=== PATIENT | female | born 1990 | race African-American/Black ===

== ENCOUNTER 2023-09-16 08:59 | Outpatient (OUT) | payer BC, SELFPAY ==
--- NOTE | 2023-09-16 09:01 | US_ITS ---
The [address] [address] Patient Name: RIOS DOMINGUEZ MRN: [id number] date: 1990 Sex: F Assigned Patient Location: [facility] Current Patient Location: [facility] Accession/Order Number: [id number] Exam Date: 09/16/2023 09:01 Report Date: 09/16/2023 10:14 At the request of: BETZAIDA DIMAS Procedure: US pelvis w/ transvaginal EXAMINATION: US pelvis w/ transvaginal HISTORY: PELVIC PAIN UTERINE LEIOMYOMA COMPARISON: No relevant comparison available. FINDINGS: Transabdominal and transvaginal images The uterus is enlarged in size, lobular in contour and heterogeneous in echotexture. The uterus measures 10.7 x 7.5 x 9.8 cm. The uterus is anteverted. Multiple heterogeneous masses the largest measuring 7.9 x 6.0 x 6.1 cm. Endometrium measures 1.9 cm, prominent. The right ovary is normal measuring 3.7 x 2.0 x 2.3 cm. Normal color and Doppler flow. Left ovary was only seen on transabdominal imaging measuring 4.3 x 2.2 x 4.0 cm. No free fluid US/US pelvis w/ transvaginal IMPRESSION: Enlarged heterogeneous uterus with multiple masses measuring up to 7.9 cm. Uterine fibroids are favored Electronically authenticated by: DEBBIE QUINONES Date: 09/16/2023 10:14
== END 2023-09-16 09:00 | disposition home or self-care (01) ==
LOC: NOMS 08:59
PROVIDERS: PCP Family Medicine; Visit Provider Obstetrics & Gynecology
DX: R10.2 Pelvic and perineal pain (principal); D25.9 Leiomyoma of uterus, unspecified
CPT/HCPCS: 76830; 76856

== ENCOUNTER 2023-09-24 20:24 | Outpatient (REF) | payer BC, SELFPAY ==
[2023-09-29 15:08] LABS: Age Gdln ACOG Testing Note (.); HPV Aptima Negative (Negative); IGP, Aptima HPV, rfx 16/18,45 Note (.)
== END 2023-09-24 20:25 | disposition home or self-care (01) ==
LOC: LAB 20:24
PROVIDERS: PCP Family Medicine; Visit Provider Physician Assistant
DX: Z01.419 Encounter for gynecological examination (general) (routine) without abnormal findings (principal)
CPT/HCPCS: 87624; G0145

== ENCOUNTER 2023-10-26 12:12 | Outpatient (OUT) | payer BC, SELFPAY | END 2023-10-26 12:13 | disposition home or self-care (01) | LOC: PST 12:13 | PROVIDERS: PCP Family Medicine; Visit Provider Obstetrics & Gynecology | DX: Z01.818 Encounter for other preprocedural examination (principal); R10.2 Pelvic and perineal pain; D25.9 Leiomyoma of uterus, unspecified ==

== ENCOUNTER 2023-11-06 06:27 | Day surgery (SDC) | payer BC, SELFPAY ==
[2023-10-26 12:51] VITALS: BP 112/72; PULSE 76; TEMP 36.3; O2SAT 99; BMI 32.8
[2023-11-06] VITALS (10 sets, daily range): BP systolic 99–114; BP diastolic 53–82; PULSE 57–82; TEMP 36.3; O2SAT 96–99; BMI 33.5
--- OUTSIDE RECORDS SUMMARY | 2023-11-06 06:29 | XMS_ITS | CCD ---
Author Organization [facility] Care Team Providers Care Violin Mechanic Name Role Phone Justine Montanez MD Primary Care Provider [phone] Sabrina Estrada Unavailable [phone] VANNESA TEJEDA Attending Unavailable SABRINA ESTRADA Referring Unavailable JUSTINE MONTANEZ Primary Care Unavailable JUSTINE MONTANEZ Primary Care Unavailable VANNESA TEJEDA Referring Unavailable LAURA ANTONIO Attending Unavailable JUSTINE MONTANEZ Primary Care Unavailable VANNESA TEJEDA Referring Unavailable Arlyn Phillips NP Unavailable [phone] Justine Montanez MD Primary Care Provider BETZAIDA CARVALHO Attending Unavailable KEANU LOPEZ Attending Unavailable BETZAIDA CARVALHO Attending Unavailable Medications Current Medications Medication Drug Class(es) Dates Sig (Normalized) Sig (Original) cyclobenzaprine hydrochloride 10 mg oral tablet (1 source) Muscle Relaxant Start: 01-16-2023 take 1 tablet by mouth in the morning, then take 1 tablet by mouth in the evening, then take 1 tablet by mouth at bedtime cyclobenzaprine (Flexeril) 10 MG tablet Indications: Acute right-sided low back pain with right-sided sciatica Take 1 tablet (10 mg) by mouth in the morning and 1 tablet (10 mg) in the evening and 1 tablet (10 mg) before bedtime. Do all this for 10 days. 30 tablet 0 01/16/2023 Active ferrous sulfate 325 mg delayed release oral tablet (1 source) Start: 01-31-2023 ferrous sulfate 325 (65 Fe) MG EC tablet Indications: Iron deficiency anemia due to sideropenic dysphagia TAKE 1 TABLET BY MOUTH IN THE MORNING AND 1 TAB AT NOON AND 1 TAB IN THE EVENING TAKE WITH MEALS 270 tablet 4 01/31/2023 Active ibuprofen 200 mg oral tablet (1 source) Nonsteroidal Anti-inflammatory Drug ibuprofen 200 MG tablet Take by mouth. 0 Active Problems Active Problems Problem Classification Problem Date Documented Date Episodic/Chronic Adjustment disorders (1 source) Adjustment disorder with anxious mood; Translations: [Adjustment disorder with anxiety] Onset: 01-16-2023 01-16-2023 Chronic Allergic reactions (1 source) Atopic dermatitis; Translations: [Atopic dermatitis, unspecified] Onset: 01-16-2023 01-16-2023 Chronic Gastritis and duodenitis (1 source) Chronic gastritis; Translations: [Unspecified chronic gastritis without bleeding] Onset: 01-16-2023 01-16-2023 Chronic Menstrual disorders (1 source) Menometrorrhagia; Translations: [Excessive and frequent menstruation with irregular cycle] Onset: 01-16-2023 01-16-2023 Chronic Miscellaneous mental health disorders (1 source) Primary insomnia; Translations: [Primary insomnia] Onset: 01-16-2023 01-16-2023 Chronic Other and unspecified benign neoplasm (1 source) Benign neoplasm of connective and other soft tissue, unspecified; Translations: [Fibroid] Onset: 05-21-2022 Episodic Other congenital anomalies (1 source) Accessory right tarsal navicular bone; Translations: [Other congenital malformations of lower limb(s), including pelvic girdle] Onset: 01-16-2023 01-16-2023 Chronic Other congenital anomalies (1 source) 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; Translations: [Other congenital malformations of lower limb(s), including pelvic girdle] Onset: 01-16-2023 01-16-2023 Chronic Other female genital disorders (1 source) Dyspareunia due to non-psychogenic cause in the female; Translations: [Unspecified dyspareunia] Onset: 01-16-2023 01-16-2023 Chronic Other nervous system disorders (1 source) Difficulty walking; Translations: [Difficulty in walking, not elsewhere classified] Onset: 01-16-2023 01-16-2023 Chronic Other nervous system disorders (1 source) Chronic pain; Translations: [Other chronic pain] Onset: 01-16-2023 01-16-2023 Chronic Spondylosis; intervertebral disc disorders; other back problems (4 sources) Acute back pain with sciatica; Translations: [Lumbago with sciatica, right side] Onset: 01-16-2023 07-09-2023 Episodic Thyroid disorders (4 sources) Multinodular goiter; Translations: [Nontoxic multinodular goiter] Onset: 05-21-2022 Chronic Past or Other Problems Problem Classification Problem Date Documented Da te Episodic/Chronic Deficiency and other anemia (1 source) Anemia; Translations: [Anemia, unspecified] Onset: 01-16-2023 01-16-2023 Episodic Deficiency and other anemia (1 source) Aura-Yusuf syndrome; 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] Onset: 01-16-2023 01-16-2023 Episodic Other non-traumatic joint disorders (1 source) Joint pain; Translations: [Pain in unspecified joint] Onset: 01-16-2023 01-16-2023 Episodic Viral infection (1 source) Verruca plantaris; Translations: [Plantar wart] Onset: 01-16-2023 01-16-2023 Episodic Results Test Name Value Interpretation Reference Range Facility [facility] 06-12-2022 CNOV Office Visit (MADELEINE ) RIOS DOMINGUEZ ([id number]) 1990 F Date Time Provider Department 06/12/22 11:00 AM LAURA ANTONIO During your visit today, we recorded the following information about you: Pulse Blood pressure Weight Height 80/minute 116/65 98.9 kg 1.643 m Pippa Whitehead Ma 06/12/2022 10:44 AM Signed Thank you for choosing the [facility] Department of Endocrinology, Diabetes and Metabolism. Did you know that you need to call 48 hours in advance of your scheduled visit, if you are unable to make your appointment? The Endocrinology and Metabolism [place] thanks you for your commitment, because patients not showing to their appointment results in a lost opportunity for patients to receive [facility] health care at the [facility]. To Cancel an appointment, please choose one of the following: - Call the Appointment Call Center at [phone] - From [email or web address], Go to Appointments - Cancel Appts If cancelling, consider your need to reschedule to prevent further delays in your care. To Schedule an appointment, please choose one of the following: - Call the Appointment Call Center at [phone] - From [email or web address], Go to Appointments - Request an Appt Laura Antonio MD 06/12/2022 11:29 AM Signed Laura Antonio M.D. Department of Endocrine Surgery Endocrinology Metabolism [place] [address], [place] [address] ENDOCRINE SURGERY NEW PATIENT VISIT NAME: Rios Dominguez CLINIC NO: [id number] : 1990 History of Present Illness: Rios Dominguez is a 32 year old female referred by Dr. Vannesa Tejeda for evaluation thyromegaly. Patient reports history of thyroiditis, diagnosed by a nurse patient works with in 05/2022. She reported minimal discomfort with swallowing and pressure sensation in neck. No imaging done. TSH from 05/21/22 was normal. She had an ultrasound in 2016 that showed a 0.4 cm right thyroid cyst. Denies compressive symptoms or aesthetic concerns. Denies hot flashes, weight loss, palpitations, and changes in vision. Denies excessive fatigue, fever, weight gain. Denies past medical history. Takes no medication. Lost 40# last year with intentional effort but has stalled over the holidays. Is eager to restart her weight loss efforts soon. My findings and recommendations will be communicated by way of the shared medical record. ENDOCRINE SURGICAL HISTORY: New or established diagnosis: Multinodular goiter Prior history of radiation treatment to the neck: No Known thyroid disease: No Known parathyroid disease: No Prior neck operations: No Family history of hypercalcemia: No Family history of thyroid cancer: No Family history of other endocrine tumors: No Pertinent medications (levothyroxine, blood thinners, calcium, diuretics, lithium, Sensipar, biotin): No PMH: PAST MEDICAL HISTORY Diagnosis Date Accessory navicular bone of both feet Fibroid Sciatica Thyroid nodule PSH: PAST SURGICAL HISTORY Procedure Laterality Date EXTRACTION ERUPTED TOOTH/EXR CURRENT MEDICATIONS: No current outpatient medications on file prior to visit. No current facility-administered medications on file prior to visit. All: ALLERGIES No Known Allergies SH: Social History Tobacco Use Smoking status: Never Passive exposure: Never Smokeless tobacco: Never Substance Use Topics Alcohol use: Yes Comment: occasionally Drug use: Never FH: Pertinent history above; otherwise, non-contributory REVIEW OF SYSTEMS: CONSTITUTIONAL: Well-appearing, no malaise or fevers EYES: normal HEENT: Negative for occular, acoustic, nasal, or oral complaints RESPIRATORY: Negative for cough, hemoptysis, wheezing, or resting dyspnea CARDIOVASCULAR: Negative for resting chest pain GI: No nausea, vomiting, or diarrhea : normal MUSCULOSKELETAL: Negative for joint swelling or acute pain SKIN: no rashes, erythema, or skin cancers PSYCH: Negative for significant mood disorder or psychiatric illness NEURO: No history of recent syncope, paralysis, or seizures ENDOCRINE: See HPI PHYSICAL EXAM: BP 116/65 Pulse 80 Ht 164.3 cm (5' 4.69 ) Wt 98.9 kg (218 lb) LMP 05/19/2022 BMI 36.63 kg/m? There is no height or weight on file to calculate BMI. CONSTITUTIONAL: Well appearing, alert, and oriented and appears euthyroid. NECK: skin over the anterior neck is smooth, no mass is visualized. Palpation revealed neck to be supple, thyroid gland is palpable and overall normal in size. No lymphadenopathy was palpated on either side of the neck. ULTRASOUND EXAMINATION: Ultrasound examination was performed in the office. Thyroid mildly heterogeneous without discrete nodules. Right lobe:3.25 x 1.84 x 3.93 cm Left lobe: 3.14 x 1.46 x 3.43 cm No worrisome lymphadenopathy was appreciated in either centra (more content not included)... Normal [facility] Kristen 05-30-2022 NADYA Telephone (MADELEINE) RIOS DOMINGUEZ ([id number]) 1990 F Date Time Provider Department 05/30/22 LAURA ANTONIO During your visit today, we recorded the following information about you: Anatena Barrientos 06/03/2022 9:29 AM Addendum 06/03/22: INTAKE COMPLETE ENDOCRINE SURGERY PATIENT WORKSHEET Initial Call Date: May 30, 2022 Reason for Consult/ Referral: Multinodular goiter [E04.2] PATIENT DEMOGRAPHICS Name: Rios Dominguez CCF#: [id number] : 1990 AGE: [age] year old Contact Numbers: Home: (home) Work: There is no work phone number on file. PATIENT PHYSICIAN INFORMATION Referring Doctor: Vannesa Tejeda Address: Phone: Waiter/Waitress First Class: same Address: Phone: PCP: Justine Montanez ([facility]) [address] [place] [address] PAST TREATMENT Office notes: SEE EPIC Medications: NONE THAT APPLY Pre-Visit Testing Component Latest Ref Rng AND Units 05/21/2022 TSH 0.270 - 4.200 mIU/L 1.200 Free T4 0.9 - 1.7 ng/dL 1.0 T3 79 - 165 ng/dL 97 Imaging Reports: Care Everywhere CD of Images: not requested, over 2 years old FNA: no FNA Slides: N/A Has the patient ever had thyroid or parathyroid surgery before: No Operative Reports: NONE AVAILABLE Pathology Reports: NONE AVAILABLE Allergies As of Date: 05/30/2022 (No Known Allergies) Date Reviewed: 05/21/2022 Reviewed by: Simon Barragan MA - Fully Assessed Reason for Visit: Consult [173] Cmt: Face Sheet Problem List As Of Date: 05/30/2022 (None) Encounter Status:Closed by ANA BARRIENTOS on 05/30/22 [facility] Kristen 05-27-2022 CNPN Telephone (ENDOMN) ANGELICARIOS ([id number]) 1990 F Date Time Provider Department 12/20/22 VANNESA TEJEDA During your visit today, we recorded the following information about you: Cara Alves Jewish History Professor 05/27/2022 10:51 AM Signed Mailed letter to Dr. [address] [facility] [address], [place], [place], [phone] Allergies As of Date: 05/27/2022 (No Known Allergies) Date Reviewed: 05/21/2022 Reviewed by: Simon Barragan MA - Fully Assessed Reason for Visit: Letter [264] Problem List As Of Date: 05/27/2022 (None) Encounter Status:Closed by CARA KWAN on 05/27/22 [facility] CNPNon 05-22-2022 CNPN Telephone (ENDOMN) RIOS DOMINGUEZ ([id number]) 1990 F Date Time Provider Department 05/22/22 VANNESA TEJEDA During your visit today, we recorded the following information about you: Cara Alves Jewish History Professor 05/22/2022 9:11 AM Signed Patient called in asking for her after visit summary to be faxed over to her. Successfully transmitted to [phone] Allergies As of Date: 05/22/2022 (No Known Allergies) Date Reviewed: 05/21/2022 Reviewed by: Simon Barragan MA - Fully Assessed Reason for Visit: Forms [913] Problem List As Of Date: 05/22/2022 (None) Encounter Status:Closed by CARA KWAN on 05/22/22 [facility] CNOVon 05-21-2022 CNOV Office Visit (ENCAMN ) RIOS DOMINGUEZ ([id number]) 1990 F Date Time Provider Department 05/21/22 1:00 PM VANNESA TEJEDA During your visit today, we recorded the following information about you: Pulse Blood pressure Weight Height 78/minute 123/71 98.4 kg 1.626 m Last Period 05/19/22 Vannesa Tejeda MD 05/21/2022 12:35 PM Addendum Viviane Lewis MD Call [phone] Vannesa Tejeda MD 05/21/2022 1:48 PM Signed Endocrine consult note Ms. Dominguez is a 32 year old female here today at the request of SABRINA ESTRADA [address] [facility] [phone] for evaluation, management, and treatment of the following issues: evaluation for thyroid nodules My final recommendations will be communicated back to the requesting physician by way of shared medical record or letter. Reason for visit: Nodules/mass History of thyroid nodules since 2016 Patient never had FNA Noted to have enlarged gland a few months ago and was seen by RN at work who patient reports diagnosed her with thyroiditis patient reports Min discomfort with eating, drinking, swallowing or other mass effect sxs but patient here to determine next step. There is some local pressure in thyroid bed. No family or personal history of thyroid cancer no radiation exposure no thyroid disease in family No autoimmune disease in family Thyroid Pain: no Mass Effect: local pressure Energy: stable and OK Moods: good Otherwise, the following additional concerns: has fibroids and interested in removal. Periods are occurring monthly but are irregular. Patient interested in childbearing in future. PAST MEDICAL HISTORY Diagnosis Date Accessory navicular bone of both feet Fibroid Sciatica Thyroid nodule PAST SURGICAL HISTORY Procedure Laterality Date EXTRACTION ERUPTED TOOTH/EXR No current outpatient medications on file prior to visit. No current facility-administered medications on file prior to visit. ALLERGIES No Known Allergies Social History Tobacco Use Smoking status: Never Passive exposure: Never Smokeless tobacco: Never Substance Use Topics Alcohol use: Yes Comment: occasionally Drug use: Never History reviewed. No pertinent family history. Negative for thyroid disease REVIEW OF SYSTEMS: Answers submitted by the patient for this visit: Endocrine Review of Systems (Submitted on 05/21/2022) Fatigue: Yes Night Sweats: Yes Recent Unintentional Weight Change: No Skin Color Changes: No Post-Nasal Drip: No Thyroid Pain (lower neck): Yes Trouble Swallowing: No Vision Disturbance: No Chest Pain: No Leg Swelling: No Blood Clots?: No Leg Pain while walking?: Yes Difficulty Breathing?: No Heartburn: No Nausea: No Vomiting?: No Diarrhea: No Constipation: No Abdominal Pain: No Bone Pain?: No Muscle Aches: No Muscle Weakness: No Joint Pain or Stiffness: No Headaches: No Dizziness: No Numbness?: No Urgency to Urinate?: No Increased Urination?: No Slow or Small Urine Stream?: No Are your menstrual cycles regular?: No Are your menstrual cycles irregular?: Yes Have your menstrual cycles stopped?: No Flushing?: No Hot Flashes?: No Increased Thirst: No Change in Body Hair?: No Cold Intolerance: Yes Heat Intolerance?: No PHYSICAL EXAM: BP 123/71 Pulse 78 Ht 162.6 cm (5' 4 ) Wt 98.4 kg (217 lb) LMP 05/19/2022 BMI 37.25 kg/m? Body mass index is 37.25 kg/m?. BP w/Orthostatic Vitals Date and Time Orthostatic BP Orthostatic Pulse BP Pulse BP Position BP Site BP Cuff Size 05/21/22 1225 -- -- 123/71 78 -- -- -- Appearance: well appearing, alert, and in no acute distress Skin: skin color, texture, turgor normal, no rashes or lesions Head: normal Eyes: Anicteric sclera. Pupils are equally round and reactive to light. Extraocular movements are intact. No lid lag, stare, ptosis. Oropharynx: lips, mucosa, and tongue normal, teeth and gums normal, oropharynx normal Neck: Supple, no adenopathy; thyroid markedly enlarged to size of 75 grams, no dominant nodules Heart: RRR without murmur, gallop, or rubs. Lungs: lungs clear to auscultation no wheezing or rhonchi Abdomen: soft, non-tender, positive bowel sounds Extremities: Normal, No deformities, No skin discoloration, and No edema Neuro: no resting tremor, reflexes 2+ DATA REVIEW: COMPARISON: None. FINDINGS: The right thyroid lobe measures 2.2 x 5.4 x 1.5 cm and the left thyroid lobe measures 2.3 x 5.1 x 1.7 cm. The thyroid isthmus measures 0.3 cm. There is a small benign colloid cyst in the right thyroid lobe measuring 0.4 cm. Normal vascularity of the thyroid gland. IMPRESSION: Small benign colloid cyst in the right thyroid lobe measuring 0.4 cm. Otherwise normal thyroid ultrasound. DICTATION START: 10/23/2015 10:55 Impression/plan: 32 year old female with history of longsta (more content not included)... Normal [facility] Comprehensive metabolic 2000 panelon 05-21-2022 Albumin [Mass/Vol] 3.8 g/dL Low 3.9-4.9 [facility] Comment on above: Order Comment: Speci men Type: BLOOD SPECIMEN Ordering Facility: [facility] Address: [address] [place] [address] Performed By: #### 3 016-3, 3024-7, 3053-6, 80097-3 #### [facility] CLIA [id number] [address] [place] [address] [place] ALP [Catalytic activity/Vol] 86 U/L Normal 34-123 [facility] Comment on above: Order Comment: Speci men Type: BLOOD SPECIMEN Ordering Facility: [facility] Address: [address] [place] [address] Performed By: #### 3 016-3, 3024-7, 3053-6, 84965-9 #### [facility] CLIA [id number] [address] [place] [address] [place] ALT [Catalytic activity/Vol] 18 U/L Normal 7-38 [facility] Comment on above: Order Comment: Speci men Type: BLOOD SPECIMEN Ordering Facility: [facility] Address: [address] [place] [address] Performed By: #### 3 016-3, 3024-7, 3053-6, 31252-8 #### [facility] CLIA [id number] [address] [place] [address] [place] Anion gap [Moles/Vol] 10 mmol/L Normal 9-18 [facility] Comment on above: Order Comment: Speci men Type: BLOOD SPECIMEN Ordering Facility: [facility] Address: [address] [place] [address] Performed By: #### 3 016-3, 3024-7, 3053-6, 03171-8 #### [facility] CLIA [id number] [address] [place] [address] [place] AST [Catalytic activity/Vol] 27 U/L Normal 13-35 [facility] Comment on above: Order Comment: Speci men Type: BLOOD SPECIMEN Ordering Facility: [facility] Address: [address] [place] [address] Performed By: #### 3 016-3, 3024-7, 3053-6, 52402-7 #### [facility] CLIA [id number] [address] [place] [address] [place] Bilirubin [Mass/Vol] 0.4 mg/dL Normal 0.2-1.3 [facility] Comment on above: Order Comment: Speci men Type: BLOOD SPECIMEN Ordering Facility: [facility] Address: [address] [place] [address] Performed By: #### 3 016-3, 3024-7, 3053-6, 37912-8 #### [facility] CLIA [id number] [address] [place] [address] [place] Calcium [Mass/Vol] 9.1 mg/dL Normal 8.5-10.2 [facility] Comment on above: Order Comment: Speci men Type: BLOOD SPECIMEN Ordering Facility: [facility] Address: [address] [place] [address] Performed By: #### 3 016-3, 3024-7, 3053-6, 48734-3 #### [facility] CLIA [id number] [address] [place] [address] [place] Chloride [Moles/Vol] 107 mmol/L High 97-105 [facility] Comment on above: Order Comment: Speci men Type: BLOOD SPECIMEN Ordering Facility: [facility] Address: [address] [place] [address] Performed By: #### 3 016-3, 3024-7, 3053-6, 08287-7 #### [facility] CLIA [id number] [address] [place] [address] [place] CO2 [Moles/Vol] 24 mmol/L Normal 22-30 [facility] Comment on above: Order Comment: Speci men Type: BLOOD SPECIMEN Ordering Facility: [facility] Address: [address] [place] [address] Performed By: #### 3 016-3, 3024-7, 3053-6, 23700-5 #### [facility] CLIA [id number] [address] [place] [address] [place] Creatinine [Mass/Vol] 0.61 mg/dL Normal 0.58-0.96 [facility] Comment on above: Order Comment: Speci men Type: BLOOD SPECIMEN Ordering Facility: [facility] Address: [address] [place] [address] Performed By: #### 3 016-3, 3024-7, 3053-6, 63674-3 #### [facility] CLIA [id number] [address] [place] [address] [place] ESTIMATED GLOMERULAR FILTRATION RATE 122 mL/min/1.73m??? Normal >=60 [facility] Comment on above: Order Comment: Speci men Type: BLOOD SPECIMEN Ordering Facility: [facility] Address: [address] [place] [address] Result Comment: Suze mated Glomerular Filtration Rate (eGFR) is calculated using the 2020 CKD-EPI creatinine equation. This equation utilizes serum creatinine, sex, and age as parameters. The creatinine assay has traceable calibration to isotope dilution-mass spectrometry. Refer to KDIGO guidelines for clinical interpretation. In patients with unstable renal function, e.g. those with acute kidney injury, the eGFR may not accurately reflect actual GFR. Performed By: #### 3 016-3, 3023-7, 3052-6, #### [facility] CLIA [id number] [address] [address] [place] Glucose [Mass/Vol] 68 mg/dL Low 74-99 [facility] Comment on above: Order Comment: Val julio Type: BLOOD SPECIMEN Ordering Facility: [facility] Address: [address] [place] [address] Result Comment: The [place] [employer] (ADA) provides guidance for cutoff values for fasting glucose and random glucose. The ADA defines fasting as no caloric intake for at least 8 hours. Fasting plasma glucose results between 100 to 125 mg/dL indicate increased risk for diabetes (prediabetes). Fasting plasma glucose results greater than or equal to 126 mg/dL meet the criteria for diagnosis of diabetes. In the absence of unequivocal hyperglycemia, results should be confirmed by repeat testing. In a patient with classic symptoms of hyperglycemia or hyperglycemic crisis, random plasma glucose results greater than or equal to 200 mg/dL meet the criteria for diagnosis of diabetes. Reference: Standards of Medical Care in Diabetes 2016, [place] [employer]. Diabetes Care. 2016.39(Suppl 1). Performed By: #### 3 016-3, 3023-7, 3052-6, #### [facility] CLIA [id number] [address] [address] [place] Potassium [Moles/Vol] 4.1 mmol/L Normal 3.7-5.1 [facility] Comment on above: Order Comment: Val julio Type: BLOOD SPECIMEN Ordering Facility: [facility] Address: [address] [place] [address] Performed By: #### 3 016-3, 3023-7, 3052-6, 61091-3 #### [facility] CLIA [id number] [address] [address] [place] Protein [Mass/Vol] 7.4 g/dL Normal 6.3-8.0 [facility] Comment on above: Order Comment: Speci men Type: BLOOD SPECIMEN Ordering Facility: [facility] Address: [address] [place] [address] [place] [address] Performed By: #### 3 016-3, 3024-7, 3053-6, 01121-1 #### [facility] CLIA [id number] [address] [place] [address] [place] Sodium [Moles/Vol] 141 mmol/L Normal 136-144 [facility] Comment on above: Order Comment: Speci men Type: BLOOD SPECIMEN Ordering Facility: [facility] Address: [address] [place] [address] Performed By: #### 3 016-3, 3024-7, 3053-6, 80280-5 #### [facility] CLIA [id number] [address] [place] [address] [place] Urea nitrogen [Mass/Vol] 12 mg/dL Normal 7-21 [facility] Comment on above: Order Comment: Speci men Type: BLOOD SPECIMEN Ordering Facility: [facility] Address: [address] [place] [address] [place] [address] Performed By: #### 3 016-3, 3024-7, 3053-6, 17773-5 #### [facility] CLIA [id number] [address] [place] [address] [place] T3 SerPl-mCncon 05-21-2022 T3 [Mass/Vol] 97 ng/dL Normal 79-165 [facility] Comment on above: Order Comment: Speci men Type: BLOOD SPECIMENOrdering Facility: [facility] Address: [address] [place] [address] Performed By: #### 3 016-3, 3024-7, 3053-6, 62868-3 ####[facility] [id number] [place] [address] [place] T4 Free SerPl-mCncon 022 Free T4 [Mass/Vol] 1.0 ng/dL Normal 0.9-1.7 [facility] Comment on above: Order Comment: Speci men Type: BLOOD SPECIMEN Ordering Facility: [facility] Address: [address] [place], [place] [address] Performed By: #### 3 016-3, 3024-7, 3053-6, 96729-3 #### [facility] CLIA [id number] [place] TSH SerPl-aCncon 05-21-2022 TSH Qn 1.200 m[IU]/L Normal 0.270-4.200 [facility] Comment on above: Order Comment: Speci men Type: BLOOD SPECIMENOrdering Facility: [facility] Address: [address] [place] [address] Result Comment: If t he patient is , TSH reference range varies by gestational period: First Trimester (weeks 9-12): 0.180-2.990 mIU/L Second Trimester: 0.110-3.980 mIU/L Third Trimester: 0.480-4.710 mIU/L Jovon Zheng et al. A Practical Approach for the Verifications and Determination of Site- and Trimester-Specific Reference Intervals for Thyroid Function tests in . Thyroid, 2019:29:3:412-420. Darrell E, et al. 2017 Guidelines of the [place] Thy[employer] Association for the Diagnosis and Management of Thyroid Disease during and the . Thyroid, 2017:27:3:315-389. Performed By: #### 3 016-3, 3024-7, 3053-6, 44824-4 ####[facility] [id number] [place] [id number] [place] US Thyroidon 06-10-2021 US Thyroid HISTORY: Enlarged thyroid FINDINGS: Right Lobe: 5.9 x 3.2 x 2.6 cm Left Lobe: 5.7 x 2.6 x 1.7 cm Isthmus (Thickness)5 mm Diffuse increase in thyroid volume. Heterogeneous echotexture, spongiform appearance. Patchy areas of increased vascularity overall findings suggests thyroiditis. No suspicious nodule or mass that would merit tissue sampling or follow up imaging. IMPRESSION: 1. Increased thyroid volume, thyroiditis appearance. 2 No suspicious nodule or mass. RECOMMENDATIONS CANCER RISK (ACR TI-RADS 2018) TR1: no FNA required TR1: 0.3% TR2: no FNA required TR2: 1.5 % TR3>: 1.5 cm follow up, >2.5 cm FNA TR3: 4.8 % Follow up 1, 3, 5 years TR4:>1.0 cm follow up >1.5 cm FNA TR4: 9.1 % Follow up: 1, 2, 3 and 5 years TR5:> 0.5 cm follow up, >1.0 cm FNA TR5: 35% Annual follow up for up to 5 years Biopsy is recommended for suspicious lesions (TR3-TR5) with the above size criteria. If there are multiple nodules, the two with the highest ACR TI-RADS grades should be sampled (rather than the two largest) Interval enlargement on follow up is felt to be significant if there is a increase of 20% and 2 mm in two dimensions, or a 50% increase in volume. If the ACR TI-RAD level increases between scans, and interval scan the following year is again recommended. Report reported and signed by Oneil Buckley on 06/11/2021 0738 Normal [facility] Basic Metabolic Panelon 12-1 Anion gap [Moles/Vol] 16 mmol/L Normal 12-20 [facility] Comment on above: Result Comment: Effe ctive 06/13/2019 reference range changed. Performed By: #### B MP, FERR, LIPD, CBCAD #### [facility] [address] [place], [place] [id number] Calcium [Mass/Vol] 9.6 mg/dL Normal 8.6-10.2 [facility] Comment on above: Performed By: #### B MP, FERR, LIPD, CBCAD #### [facility] [address] [place], [place] [id number] Chloride [Moles/Vol] 105 mmol/L Normal 98-107 [facility] Comment on above: Performed By: #### B MP, FERR, LIPD, CBCAD #### [facility] [address] [facility] [place] [id number] CO2 [Moles/Vol] 22 mmol/L Normal 20-31 [facility] Comment on above: Performed By: #### B MP, FERR, LIPD, CBCAD #### [facility] [address] [place], [place] [id number] Creatinine [Mass/Vol] 0.6 mg/dL Normal 0.6-1.4 [facility] Comment on above: Performed By: #### B MP, FERR, LIPD, CBCAD #### [facility] [address] [facility] [place] [id number] eGFRAA 134 mL/min/1.73m2 Normal >60 [facility] Comment on above: Performed By: #### B MP, FERR, LIPD, CBCAD #### [facility] [address] [place], [place] [id number] eGFRNAA 110 mL/min/1.73m2 Normal >60 [facility] Comment on above: Performed By: #### B MP, FERR, LIPD, CBCAD #### [facility] [address] [place], [place] [id number] Glucose [Mass/Vol] 85 mg/dL Normal 65-99 [facility] Comment on above: Result Comment: For FASTING Glucose --- ADA reference ranges: Normal 65-99 mg/dl Prediabetes 100-125 Diabetes >/= 126 Performed By: #### B MP, FERR, LIPD, CBCAD #### [facility] [address] [place], [place] [id number] Potassium [Moles/Vol] 4.3 mmol/L Normal 3.5-5.5 [facility] Comment on above: Performed By: #### B MP, FERR, LIPD, CBCAD #### [facility] [address] [place], [place] [id number] Sodium [Moles/Vol] 139 mmol/L Normal 135-146 [facility] Comment on above: Performed By: #### B MP, FERR, LIPD, CBCAD #### [facility] [address] [facility] [place] [id number] Urea nitrogen [Mass/Vol] 8 mg/dL Normal 7-25 [facility] Comment on above: Performed By: #### B MP, FERR, LIPD, CBCAD #### [facility] [address] [place], [place] [id number] Complete Blood Count with Au to Diffon 05-23-2021 Basophils (Bld) [#/Vol] 0.06 10*3/uL Normal 0.00-0.20 [facility] Comment on above: Performed By: #### B MP, FERR, LIPD, CBCAD #### [facility] [address] [place], [place] [id number] Basophils/100 WBC (Bld) 1.1 % Normal [facility] Comment on above: Performed By: #### B MP, FERR, LIPD, CBCAD #### [facility] [address] [place], [place] [id number] Eosinophils (Bld) [#/Vol] 0.04 10*3/uL Normal 0.02-0.50 [facility] Comment on above: Performed By: #### B MP, FERR, LIPD, CBCAD #### [facility] [address] [place], [place] [id number] Eosinophils/100 WBC (Bld) 0.8 % Normal [facility] Comment on above: Performed By: #### B MP, FERR, LIPD, CBCAD #### [facility] [address] [place], [place] [id number] Erythrocyte distribution width (RBC) [Ratio] 16.4 % High 11.0-15.0 [facility] Comment on above: Performed By: #### B MP, FERR, LIPD, CBCAD #### [facility] [address] [place], [place] [id number] Hematocrit (Bld) [Volume fraction] 34.6 % Low 35.0-47.0 [facility] Comment on above: Performed By: #### B MP, FERR, LIPD, CBCAD #### [facility] [address] [place], [place] [id number] Hemoglobin (Bld) [Mass/Vol] 10.8 g/dL Low 11.6-15.5 [facility] Comment on above: Performed By: #### B MP, FERR, LIPD, CBCAD #### [facility] [address] [place], [place] [id number] Lymphocytes (Bld) [#/Vol] 1.8 10*3/uL Normal 0.9-3.9 [facility] Comment on above: Performed By: #### B MP, FERR, LIPD, CBCAD #### [facility] [address] [place], [place] [id number] Lymphocytes/100 WBC (Bld) 34.3 % Normal [facility] Comment on above: Performed By: #### B MP, FERR, LIPD, CBCAD #### [facility] [address] [place], [place] [id number] MCH (RBC) [Entitic mass] 24.1 pg Low 27.0-33.0 [facility] Comment on above: Performed By: #### B MP, FERR, LIPD, CBCAD #### [facility] [address] [place], [place] [id number] MCHC (RBC) [Mass/Vol] 31.2 g/dL Low 32.0-36.0 [facility] Comment on above: Performed By: #### B MP, FERR, LIPD, CBCAD #### [facility] [address] [place], [place] [id number] MCV (RBC) [Entitic vol] 77 fL Low 80-100 [facility] Comment on above: Performed By: #### B MP, FERR, LIPD, CBCAD #### [facility] [address] [place], [place] [id number] Monocytes (Bld) [#/Vol] 0.6 10*3/uL Normal 0.2-0.9 [facility] Comment on above: Performed By: #### B MP, FERR, LIPD, CBCAD #### [facility] [address] [place], [place] [id number] Monocytes/100 WBC (Bld) 10.7 % Normal [facility] Comment on above: Performed By: #### B MP, FERR, LIPD, CBCAD #### [facility] [address] [place], [place] [id number] Neutrophils (Bld) [#/Vol] 2.8 10*3/uL Normal 1.5-7.8 [facility] Comment on above: Performed By: #### B MP, FERR, LIPD, CBCAD #### [facility] [address] [place], [place] [id number] Neutrophils/100 WBC (Bld) 52.9 % Normal [facility] Comment on above: Performed By: #### B MP, FERR, LIPD, CBCAD #### [facility] [address] [place], [place] [id number] Platelet mean volume (Bld) [Entitic vol] 10.80 fL Normal 7.50-12.50 [facility] Comment on above: Performed By: #### B MP, FERR, LIPD, CBCAD #### [facility] [address] [place], [place] [id number] Platelets (Bld) [#/Vol] 369 10*3/uL Normal 140-400 [facility] Comment on above: Performed By: #### B MP, FERR, LIPD, CBCAD #### [facility] [address] [place], [place] [id number] RBC (Bld) [#/Vol] 4.48 10*6/uL Normal 3.90-5.20 [facility] Comment on above: Performed By: #### B MP, FERR, LIPD, CBCAD #### [facility] [address] [place], [place] [id number] RDW-SD 45.9 fL Normal 37.0-50.0 [facility] Comment on above: Performed By: #### B MP, FERR, LIPD, CBCAD #### [facility] [address] [place], [place] [id number] WBC (Bld) [#/Vol] 5.3 10*3/uL Normal 3.8-11.0 [facility] Comment on above: Performed By: #### B MP, FERR, LIPD, CBCAD #### [facility] [address] [place], [place] [id number] Ferritinon 05-23-2021 FERR 9.2 ng/mL Low 15.0-150.0 [facility] Comment on above: Performed By: #### B MP, FERR, LIPD, CBCAD #### [facility] [address] [place], [place] [id number] Lipid Panelon 05-23-2021 Cholesterol [Mass/Vol] 146 mg/dL Normal 125-200 [facility] Comment on above: Result Comment: Low risk < 200mg/dL Borderline risk 201-239 mg/dl High risk > or equal to 240 Performed By: #### B MP, FERR, LIPD, CBCAD #### [facility] [address] [place], [place] [id number] Cholesterol in HDL [Mass/Vol] 65 mg/dL Normal >40 [facility] Comment on above: Result Comment: High Cardiovascular Risk HDL <40 mg/dL Low Cardiovascular Risk HDL > or equal to 60 mg/dl Performed By: #### B MP, FERR, LIPD, CBCAD #### [facility] [address] [place], [place] [id number] Cholesterol in LDL [Mass/Vol] 73 mg/dL Normal [facility] Comment on above: Result Comment: LDL ATP III CLASSIFICATION LDL less than 100 mg/dl Optimal LDL 100-129 mg/dl Near or above optimal LDL 130-159 Borderline high LDL 160-189 High LDL greater than 189 mg/dl Very High Performed By: #### B MP, FERR, LIPD, CBCAD #### [facility] [address] [place], [place] [id number] Cholesterol in VLDL [Mass/Vol] 8 mg/dL Normal [facility] Comment on above: Performed By: #### B MP, FERR, LIPD, CBCAD #### [facility] [address] [place], [place] [id number] Cholesterol.total/C holesterol in HDL [Mass ratio] 2 {ratio} Normal [facility] Comment on above: Performed By: #### B MP, FERR, LIPD, CBCAD #### [facility] [address] [place], [place] [id number] Triglyceride [Mass/Vol] 40 mg/dL Normal 30-150 [facility] Comment on above: Result Comment: TRIG ATPIII CLASSIFICATIONS TRIG less than 150 mg/dl Normal TRIG 150-199 mg/dl Borderline High TRIG 200-500 mg/dl High TRIG greather than 500 mg/dl Very High Performed By: #### B MP, FERR, LIPD, CBCAD #### [facility] [address] [place], [place] [id number] Q - CULTURE,URINE,ROUTINEon 05-23-2021 CULTURE, URINE, ROUTINE SEE NOTE Normal [facility] Comment on above: Order Comment: [facility] Testing performed at: [employer], [employer] [facility], [address], [address] [place], [address], Film Recordist: Gulshan Butler MD [facility] Collection Date/Time: [facility] Results Received Date/Time: [facility] Reported Date/Time: Result Comment: CULT URE, URINE, ROUTINE Micro Number: [id number] Test Status: Final Specimen Source: Urine Specimen Quality: Adequate Result: Less than 10,000 CFU/mL of single Gram positive organism isolated. No further testing will be performed. If clinically indicated, recollection using a method to minimize contamination, with prompt transfer to Urine Culture Transport Tube, is recommended. Performed By: #### 6 304R #### [facility] [address] [place] [address] XR Abdomen Single View (KUB) *on 05-23-2021 XR Abdomen Single View (KUB)* HISTORY: LLQ pain x 1 year FINDINGS: Moderate volume of descending, sigmoid colon stool. No obstruction, mass effect or free air. No urinary tract stones. Unremarkable skeletal structures. IMPRESSION: 1. Left colon stool, no obstruction. If symptoms persist following appropriate medical management, CT imaging maybe of assistance. Report reported and signed by Oneil Buckley on 05/23/[address] [facility] Vital Signs Date Time Vital Sign Value Performing Clinician Eneida wetzel 06-12-2022 10:47-0500 Body height 164.3 cm Laura Antonio MD Work Phone: [facility] 06-12-2022 10:47-0500 Body weight 98.88 kg Laura Antonio MD Work Phone: [facility] 06-12-2022 10:47-0500 Diastolic blood pressure 65 mm[Hg] Laura Antonio MD Work Phone: [facility] 06-12-2022 10:47-0500 Heart rate 80 /min Laura Antonio MD Work Phone: [facility] 06-12-2022 10:47-0500 Systolic blood pressure 116 mm[Hg] Laura Antonio MD Work Phone: [facility] Encounters Encounter Date Encounter Type Care Provider Facility Start: 10-07-2023 End: 10-07-2023 ambulatory BETZAIDA SOLORZANOO Not Available Start: 09-24-2023 End: 09-24-2023 ambulatory KEANU LOPEZ Not Available Start: 09-08-2023 End: 09-08-2023 ambulatory BETZAIDA JUDIE Not Available Start: 07-09-2023 Refill Arlyn smallwood NP Work Phone: [facility] Comment on above: Acute right-sided lo w back pain with right-sided sciatica Start: 06-12-2022 End: 06-13-2022 ambulatory LAURA ANTONIO Facility:[facility] Start: 06-12-2022 End: 06-12-2022 Patient encounter procedure Laura Antonio MD Work Phone: Endocrine Surgery Comment on above: Multinodular goiter Start: 05-30-2022 Telephone encounter Laura Antonio MD Work Phone: Endocrine Surgery Comment on above: Consult (Face Sheet) Start: 05-27-2022 Telephone encounter Vannesa Tejeda MD Work Phone: Endocrinology Comment on above: Letter Start: 05-22-2022 Telephone encounter Vannesa Tejeda MD Work Phone: Endocrinology Comment on above: Forms Start: 05-21-2022 End: 05-22-2022 ambulatory JUSTINE MONTANEZ Facility:[facility] Plan of Treatment Date Care Activity Detail Author Start: 07-14-2023 End: 07-14-2023 Patient encounter procedure 07/14/2023 8:40 AM EST Office Visit [facility] [address] [place] [address] [place] [address] Betzaida Carvalho, DO [address] [place] [address] [place] [address] Pelvic pain in female [facility] Comment on above: Pelvic pain in femal e Start: 02-06-2023 Influenza vaccination Influenza Vacc ine (#1) [facility] Start: 06-08-2022 DEPRESSION [facility] Start: 02-06-2022 Influenza vaccination INFLUENZA (#1) [facility] Start: 06-08-2021 DEPRESSION ASSESSMENT [facility] Start: 2020 HPV TESTING HPV TESTING [facility] Start: 2020 Screening for malign ant neoplasm of cervix [facility] Start: 2011 PAP TESTING PAP TESTING [facility] Start: 2011 Screening for malign ant neoplasm of cervix Pap Smear [facility] Start: 2009 Urine microalbumin profile DTAP,TDAP ,TD (1 - Tdap) [facility] Start: 2008 HEPATITIS C SCREENING HEPATITIS C SC REENING [facility] Start: 2008 HIV SCREENING HIV SCREENING [facility] Start: 1990 COVID-19 VACCINE (#1) COVID-19 VACCI NE (#1) [facility] Start: 1990 HEPATITIS B (1 of 3 - 3-dose series) HEPATITIS B (1 of 3 - 3-dose series) [facility] Immunizations Immunization Date Immunization Notes Care Provider Rebecca hendrickson 12-22-2002 hepatitis B vaccine, pediatric or pediatric/adolescent dosage Arlyn Navratil LICENSE AND PERMIT SPECIALIST Work Phone: [facility] 12-22-2002 TD(adult) unspecifie d formulation Arlyn Navratil LICENSE AND PERMIT SPECIALIST Work Phone: [facility] 02-26-1994 diphtheria, tetanus toxoids and pertussis vaccine Arlyn Navratil LICENSE AND PERMIT SPECIALIST Work Phone: [facility] 02-26-1994 haemophilus influenz ae type b vaccine, conjugate unspecified formulation Arlyn Navratil LICENSE AND PERMIT SPECIALIST Work Phone: [facility] 02-26-1994 measles, mumps and rubella virus vaccine Arlyn Navratil LICENSE AND PERMIT SPECIALIST Work Phone: [facility] 02-26-1994 trivalent poliovirus vaccine, live, oral Arlyn Navratil LICENSE AND PERMIT SPECIALIST Work Phone: [facility] 05-04-1991 haemophilus influenz ae type b vaccine, conjugate unspecified formulation Arlyn Navratil LICENSE AND PERMIT SPECIALIST Work Phone: [facility] 1990 diphtheria, tetanus toxoids and pertussis vaccine Arlyn Navratil LICENSE AND PERMIT SPECIALIST Work Phone: [facility] 1990 measles, mumps and rubella virus vaccine Arlyn Navratil LICENSE AND PERMIT SPECIALIST Work Phone: [facility] 1990 trivalent poliovirus vaccine, live, oral Arlyn Navratil LICENSE AND PERMIT SPECIALIST Work Phone: [facility] 1990 diphtheria, tetanus toxoids and pertussis vaccine Arlyn Navratil LICENSE AND PERMIT SPECIALIST Work Phone: [facility] 1990 trivalent poliovirus vaccine, live, oral Arlyn Navratil LICENSE AND PERMIT SPECIALIST Work Phone: [facility] Healthcare Payers Date Payer Category Payer Unknown [id number] 2017 Unknown [id number] 1990 Unknown [id number] 1990 Unknown [id number] 1990 Unknown [id number] Social History Date Type Detail Facility Start: 05-21-2022 Tobacco smoking stat [facility] Never smoked tobacco [facility] Start: 05-21-2022 End: 01-16-2023 Tobacco use and exposure Smokeless tobacco non-user [facility] Start: 05-21-2022 End: 06-12-2022 Alcohol intake Current drinker of alcohol (finding) [facility] Start: 05-21-2022 Alcohol Comment occasionally [facility] Start: 1990 Sex Assigned At Not on file [facility] Start: 01-16-2023 Tobacco smoking stat [facility] Ex-smoker [facility] History of tobacco use Current smoker [facility] History of tobacco use Cigarette Smoker [facility] Start: 06-23-2023 Alcohol intake Ex-drinker (finding) [facility] Start: 01-16-2023 History of Social function [facility] Start: 01-16-2023 Alcohol Use Disorder Identification Test - Consumption [AUDIT-C] [facility] How often to you hav e a drink containing alcohol? Monthly or less [facility] How many standard dr inks containing alcohol do you have on a typical day? 1 or 2 [facility] How often do you hav e 6 or more drinks on 1 occasion? Never [facility] Start: 01-15-2023 Alcohol Comment caffeine intake : no ne [facility] NEGATED: Highlighted rowStart: NINF History of tobacco use Passive smoker [facility] Progress note 06-12-2022 Note Date & Type Note Facility 06-12-2022 Note HNO ID: [id number] Author: Laura Antonio MD Service: ? Author Type: Physician Type: Progress Notes Filed: 06/12/2022 11:29 AM Note Text: Laura Antonio M.D. Department of Endocrine Surgery Endocrinology Metabolism [place] [facility] [address], [place] [address] ENDOCRINE SURGERY NEW PATIENT VISIT NAME: Rios Dominguez [facility] NO: [id number] : 1990 History of Present Illness: Rios Dominguez is a 32 year old female referred by Dr. Vannesa Tejeda for evaluation thyromegaly. Patient reports history of thyroiditis, diagnosed by a nurse patient works with in 05/2022. She reported minimal discomfort with swallowing and pressure sensation in neck. No imaging done. TSH from 05/21/22 was normal. She had an ultrasound in 2016 that showed a 0.4 cm right thyroid cyst. Denies compressive symptoms or aesthetic concerns. Denies hot flashes, weight loss, palpitations, and changes in vision. Denies excessive fatigue, fever, weight gain. Denies past medical history. Takes no medication. Lost 40# last year with intentional effort but has stalled over the holidays. Is eager to restart her weight loss efforts soon. My findings and recommendations will be communicated by way of the shared medical record. ENDOCRINE SURGICAL HISTORY: New or established diagnosis: Multinodular goiter Prior history of radiation treatment to the neck: No Known thyroid disease: No Known parathyroid disease: No Prior neck operations: No Family history of hypercalcemia: No Family history of thyroid cancer: No Family history of other endocrine tumors: No Pertinent medications (levothyroxine, blood thinners, calcium, diuretics, lithium, Sensipar, biotin): No PMH: PAST MEDICAL HISTORY Diagnosis Date Accessory navicular bone of both feet Fibroid Sciatica Thyroid nodule PSH: PAST SURGICAL HISTORY Procedure Laterality Date EXTRACTION ERUPTED TOOTH/EXR CURRENT MEDICATIONS: No current outpatient medications on file prior to visit. No current facility-administered medications on file prior to visit. All: ALLERGIES No Known Allergies SH: Social History Tobacco Use Smoking status: Never Passive exposure: Never Smokeless tobacco: Never Substance Use Topics Alcohol use: Yes Comment: occasionally Drug use: Never FH: Pertinent history above; otherwise, non-contributory REVIEW OF SYSTEMS: CONSTITUTIONAL: Well-appearing, no malaise or fevers EYES: normal HEENT: Negative for occular, acoustic, nasal, or oral complaints RESPIRATORY: Negative for cough, hemoptysis, wheezing, or resting dyspnea CARDIOVASCULAR: Negative for resting chest pain GI: No nausea, vomiting, or diarrhea : normal MUSCULOSKELETAL: Negative for joint swelling or acute pain SKIN: no rashes, erythema, or skin cancers PSYCH: Negative for significant mood disorder or psychiatric illness NEURO: No history of recent syncope, paralysis, or seizures ENDOCRINE: See HPI PHYSICAL EXAM: BP 116/65 Pulse 80 Ht 164.3 cm (5' 4.69 ) Wt 98.9 kg (218 lb) LMP 05/19/2022 BMI 36.63 kg/m? There is no height or weight on file to calculate BMI. CONSTITUTIONAL: Well appearing, alert, and oriented and appears euthyroid. NECK: skin over the anterior neck is smooth, no mass is visualized. Palpation revealed neck to be supple, thyroid gland is palpable and overall normal in size. No lymphadenopathy was palpated on either side of the neck. ULTRASOUND EXAMINATION: Ultrasound examination was performed in the office. Thyroid mildly heterogeneous without discrete nodules. Right lobe:3.25 x 1.84 x 3.93 cm Left lobe: 3.14 x 1.46 x 3.43 cm No worrisome lymphadenopathy was appreciated in either central neck compartment or jugular chain. DATA: TSH Date Value Ref Range Status 05/21/2022 1.200 0.270 - 4.200 mIU/L Final Comment: If the patient is , TSH reference range varies by gestational period: First Trimester (weeks 9-12): 0.180-2.990 mIU/L Second Trimester: 0.110-3.980 mIU/L Third Trimester: 0.480-4.710 mIU/L Jovon Zheng et al. A Practical Approach for the Verifications and Determination of Site- and Trimester-Specific Reference Intervals for Thyroid Function tests in . Thyroid, 2019:29:3:412-420. Darrell Rdz, et al. 2017 Guidelines of the [place] Thyroid Association for the Diagnosis and Management of Thyroid Disease during and the . Thyroid, 2017:27:3:315-389. Calcium, Total Date Value Ref Range Status 05/21/2022 9.1 8.5 - 10.2 mg/dL Final DIAGNOSTIC STUDIES REVIEWED: Neck ultrasound 2016 COMPARISON: None. FINDINGS: The right thyroid lobe measures 2.2 x 5.4 x 1.5 cm and the left thyroid lobe measures 2.3 x 5.1 x 1.7 cm. The thyroid isthmus measures 0.3 cm. There is a small benign colloid cyst in the right thyroid lobe measuring 0.4 cm. Normal vascularity of the thyroid gland. IMPRESSION: Sm (more content not included)... [facility] History of Present illness Narrative 06-12-2022 Laura Antonio MD - 06/12/2022 11:00 AM EST Note Date & Type Note Facility 06-12-2022 History of Presen t illness Narrative Laura Antonio M.D. Department of Endocrine Surgery Endocrinology Metabolism [place] The [address], [address] [place] [address] ENDOCRINE SURGERY NEW PATIENT VISIT NAME: Rios Dominguez [facility] NO: [id number] : 1990 History of Present Illness: Rios Dominguez is a 32 year old female referred by Dr. Vannesa Tejeda for evaluation thyromegaly. Patient reports history of thyroiditis, diagnosed by a nurse patient works with in 05/2022. She reported minimal discomfort with swallowing and pressure sensation in neck. No imaging done. TSH from 05/21/22 was normal. She had an ultrasound in 2016 that showed a 0.4 cm right thyroid cyst. Denies compressive symptoms or aesthetic concerns. Denies hot flashes, weight loss, palpitations, and changes in vision. Denies excessive fatigue, fever, weight gain. Denies past medical history. Takes no medication. Lost 40# last year with intentional effort but has stalled over the holidays. Is eager to restart her weight loss efforts soon. My findings and recommendations will be communicated by way of the shared medical record. ENDOCRINE SURGICAL HISTORY: New or established diagnosis: Multinodular goiter Prior history of radiation treatment to the neck: No Known thyroid disease: No Known parathyroid disease: No Prior neck operations: No Family history of hypercalcemia: No Family history of thyroid cancer: No Family history of other endocrine tumors: No Pertinent medications (levothyroxine, blood thinners, calcium, diuretics, lithium, Sensipar, biotin): No PMH: PAST MEDICAL HISTORY Diagnosis Date Accessory navicular bone of both feet Fibroid Sciatica Thyroid nodule PSH: PAST SURGICAL HISTORY Procedure Laterality Date EXTRACTION ERUPTED TOOTH/EXR CURRENT MEDICATIONS: No current outpatient medications on file prior to visit. No current facility-administered medications on file prior to visit. All: ALLERGIES No Known Allergies SH: Social History Tobacco Use Smoking status: Never Passive exposure: Never Smokeless tobacco: Never Substance Use Topics Alcohol use: Yes Comment: occasionally Drug use: Never FH: Pertinent history above; otherwise, non-contributory REVIEW OF SYSTEMS: CONSTITUTIONAL: Well-appearing, no malaise or fevers EYES: normal HEENT: Negative for occular, acoustic, nasal, or oral complaints RESPIRATORY: Negative for cough, hemoptysis, wheezing, or resting dyspnea CARDIOVASCULAR: Negative for resting chest pain GI: No nausea, vomiting, or diarrhea : normal MUSCULOSKELETAL: Negative for joint swelling or acute pain SKIN: no rashes, erythema, or skin cancers PSYCH: Negative for significant mood disorder or psychiatric illness NEURO: No history of recent syncope, paralysis, or seizures ENDOCRINE: See HPI PHYSICAL EXAM: BP 116/65 Pulse 80 Ht 164.3 cm (5' 4.69 ) Wt 98.9 kg (218 lb) LMP 05/19/2022 BMI 36.63 kg/m There is no height or weight on file to calculate BMI. CONSTITUTIONAL: Well appearing, alert, and oriented and appears euthyroid. NECK: skin over the anterior neck is smooth, no mass is visualized. Palpation revealed neck to be supple, thyroid gland is palpable and overall normal in size. No lymphadenopathy was palpated on either side of the neck. ULTRASOUND EXAMINATION: Ultrasound examination was performed in the office. Thyroid mildly heterogeneous without discrete nodules. Right lobe:3.25 x 1.84 x 3.93 cm Left lobe: 3.14 x 1.46 x 3.43 cm No worrisome lymphadenopathy was appreciated in either central neck compartment or jugular chain. DATA: TSH Date Value Ref Range Status 05/21/2022 1.200 0.270 - 4.200 mIU/L Final Comment: If the patient is , TSH reference range varies by gestational period: First Trimester (weeks 9-12): 0.180-2.990 mIU/L Second Trimester: 0.110-3.980 mIU/L Third Trimester: 0.480-4.710 mIU/L Jovon Zheng, et al. A Practical Approach for the Verifications and Determination of Site- and Trimester-Specific Reference Intervals for Thyroid Function tests in . Thyroid, 2019:29:3:412-420. Darrell Rdz, et al. 2017 Guidelines of the [place] Thyroid Association for the Diagnosis and Management of Thyroid Disease during and the . Thyroid, 2017:27:3:315-389. Calcium, Total Date Value Ref Range Status 05/21/2022 9.1 8.5 - 10.2 mg/dL Final DIAGNOSTIC STUDIES REVIEWED: Neck ultrasound 2016 COMPARISON: None. FINDINGS: The right thyroid lobe measures 2.2 x 5.4 x 1.5 cm and the left thyroid lobe measures 2.3 x 5.1 x 1.7 cm. The thyroid isthmus measures 0.3 cm. There is a small benign colloid cyst in the right thyroid lobe measuring 0.4 cm. Normal vascularity of the thyroid gland. IMPRESSION: Small benign colloid cyst in the right thyroid lobe measuring 0.4 cm. Otherwise normal thyroid ultrasound. ASSESSMENT and PLAN: In summary, Rios Dominguez has normal thyroid. No indications for thyroidectomy at this time. She was advised to call her PCP and/or Dr. Tejeda if she develops recurrent symptoms of thyroiditis. I spent a total of 30 minutes on the date of the service which included preparing to see the patient, [id number] patient care, completing clinical documentation, obtaining and/or reviewing separately obtained history, performing a medically appropriate examination, counseling and educating the patient/family/caregiver, ordering medications, tests, or procedures, communicating with other HCPs (not separately reported), independently interpreting results (not separately reported), communicating results to the patient/family/caregiver, and care coordination (not separately reported). I appreciate being involved in the care of your patient, and please feel free to contact me should you have additional questions. Sincerely, Laura Antonio M.D. Endocrine Surgeon [facility] documented in this encounter [facility] Instructions 06-12-2022 Patient Instructions Note Date & Type Note Facility 06-12-2022 Instructions Pippa Whitehead Ma - 06/12/2022 10:44 AM EST Thank you for choosing the [facility] Department of Endocrinology, Diabetes and Metabolism. Did you know that you need to call 48 hours in advance of your scheduled visit, if you are unable to make your appointment? The Endocrinology and Metabolism [place] thanks you for your commitment, because patients not showing to their appointment results in a lost opportunity for patients to receive [facility] health care at the [facility]. To Cancel an appointment, please choose one of the following: - Call the Appointment Call Center at [phone] - From [email or web address], Go to Appointments - Cancel Appts If cancelling, consider your need to reschedule to prevent further delays in your care. To Schedule an appointment, please choose one of the following: - Call the Appointment Call Center at [phone] - From [email or web address], Go to Appointments - Request an Appt documented in this encounter [facility] Note 05-30-2022 Telephone Encounter - Ana Barrientos - 05/30/2022 11:04 AM EST Note Date & Type Note Facility 05-30-2022 Miscellaneous Notes Formattin g of this note is different from the original. ENDOCRINE SURGERY PATIENT WORKSHEET Initial Call Date: May 30, 2022 Reason for Consult/ Referral: Multinodular goiter [E04.2] PATIENT DEMOGRAPHICS Name: Rios Dominguez CC#: [id number] : 1990 AGE: [age] year old Contact Numbers: Home: (home) Work: There is no work phone number on file. PATIENT PHYSICIAN INFORMATION Referring Doctor: Vannesa Tejeda Address: Phone: Waiter/Waitress First Class: same Address: Phone: PCP: Justine Montanez ([facility]) [address] [place] [address] PAST TREATMENT Office notes: SEE EPIC Medications: NONE THAT APPLY Pre-Visit Testing Component Latest Ref Rng & Units 05/21/2022 TSH 0.270 - 4.200 mIU/L 1.200 Free T4 0.9 - 1.7 ng/dL 1.0 T3 79 - 165 ng/dL 97 Imaging Reports: Care Everywhere CD of Images: not requested, over 2 years old FNA: no FNA Slides: N/A Has the patient ever had thyroid or parathyroid surgery before: No Operative Reports: NONE AVAILABLE Pathology Reports: NONE AVAILABLE documented in this encounter [facility] Note 05-27-2022 Telephone Encounter - Cara Alves Jewish History Professor - 05/27/2022 10:50 AM EST Note Date & Type Note Facility 05-27-2022 Miscellaneous Notes Formattin g of this note might be different from the original. Mailed letter to Dr. Estrada [address], [phone] documented in this encounter [facility] Note 05-22-2022 Telephone Encounter - Cara Alves Jewish History Professor - 05/22/2022 9:10 AM EST Note Date & Type Note Facility 05-22-2022 Miscellaneous Notes Formattin g of this note might be different from the original. Patient called in asking for her after visit summary to be faxed over to her. Successfully transmitted to [phone] documented in this encounter [facility] Progress note 05-21-2022 Note Date & Type Note Facility 05-21-2022 Note HNO ID: [id number] Author: Vannesa Tejead MD Service: ? Author Type: Physician Type: Progress Notes Filed: 05/21/2022 1:48 PM Note Text: Endocrine consult note Ms. Dominguez is a 32 year old female here today at the request of SABRINA ESTRADA [address] [facility] [id number] for evaluation, management, and treatment of the following issues: evaluation for thyroid nodules My final recommendations will be communicated back to the requesting physician by way of shared medical record or letter. Reason for visit: Nodules/mass History of thyroid nodules since 2016 Patient never had FNA Noted to have enlarged gland a few months ago and was seen by RN at work who patient reports diagnosed her with thyroiditis patient reports Min discomfort with eating, drinking, swallowing or other mass effect sxs but patient here to determine next step. There is some local pressure in thyroid bed. No family or personal history of thyroid cancer no radiation exposure no thyroid disease in family No autoimmune disease in family Thyroid Pain: no Mass Effect: local pressure Energy: stable and OK Moods: good Otherwise, the following additional concerns: has fibroids and interested in removal. Periods are occurring monthly but are irregular. Patient interested in childbearing in future. PAST MEDICAL HISTORY Diagnosis Date Accessory navicular bone of both feet Fibroid Sciatica Thyroid nodule PAST SURGICAL HISTORY Procedure Laterality Date EXTRACTION ERUPTED TOOTH/EXR No current outpatient medications on file prior to visit. No current facility-administered medications on file prior to visit. ALLERGIES No Known Allergies Social History Tobacco Use Smoking status: Never Passive exposure: Never Smokeless tobacco: Never Substance Use Topics Alcohol use: Yes Comment: occasionally Drug use: Never History reviewed. No pertinent family history. Negative for thyroid disease REVIEW OF SYSTEMS: Answers submitted by the patient for this visit: Endocrine Review of Systems (Submitted on 05/21/2022) Fatigue: Yes Night Sweats: Yes Recent Unintentional Weight Change: No Skin Color Changes: No Post-Nasal Drip: No Thyroid Pain (lower neck): Yes Trouble Swallowing: No Vision Disturbance: No Chest Pain: No Leg Swelling: No Blood Clots?: No Leg Pain while walking?: Yes Difficulty Breathing?: No Heartburn: No Nausea: No Vomiting?: No Diarrhea: No Constipation: No Abdominal Pain: No Bone Pain?: No Muscle Aches: No Muscle Weakness: No Joint Pain or Stiffness: No Headaches: No Dizziness: No Numbness?: No Urgency to Urinate?: No Increased Urination?: No Slow or Small Urine Stream?: No Are your menstrual cycles regular?: No Are your menstrual cycles irregular?: Yes Have your menstrual cycles stopped?: No Flushing?: No Hot Flashes?: No Increased Thirst: No Change in Body Hair?: No Cold Intolerance: Yes Heat Intolerance?: No PHYSICAL EXAM: BP 123/71 Pulse 78 Ht 162.6 cm (5' 4 ) Wt 98.4 kg (217 lb) LMP 05/19/2022 BMI 37.25 kg/m? Body mass index is 37.25 kg/m?. BP w/Orthostatic Vitals Date and Time Orthostatic BP Orthostatic Pulse BP Pulse BP Position BP Site BP Cuff Size 05/21/22 1225 -- -- 123/71 78 -- -- -- Appearance: well appearing, alert, and in no acute distress Skin: skin color, texture, turgor normal, no rashes or lesions Head: normal Eyes: Anicteric sclera. Pupils are equally round and reactive to light. Extraocular movements are intact. No lid lag, stare, ptosis. Oropharynx: lips, mucosa, and tongue normal, teeth and gums normal, oropharynx normal Neck: Supple, no adenopathy; thyroid markedly enlarged to size of 75 grams, no dominant nodules Heart: RRR without murmur, gallop, or rubs. Lungs: lungs clear to auscultation no wheezing or rhonchi Abdomen: soft, non-tender, positive bowel sounds Extremities: Normal, No deformities, No skin discoloration, and No edema Neuro: no resting tremor, reflexes 2+ DATA REVIEW: COMPARISON: None. FINDINGS: The right thyroid lobe measures 2.2 x 5.4 x 1.5 cm and the left thyroid lobe measures 2.3 x 5.1 x 1.7 cm. The thyroid isthmus measures 0.3 cm. There is a small benign colloid cyst in the right thyroid lobe measuring 0.4 cm. Normal vascularity of the thyroid gland. IMPRESSION: Small benign colloid cyst in the right thyroid lobe measuring 0.4 cm. Otherwise normal thyroid ultrasound. DICTATION START: 10/23/2015 10:55 Impression/plan: 32 year old female with history of longstanding thyroid nodules Check ultrasound and labs Likely needs FNA I suspect gland is quite enlarged from 2016 Encouraged consideration of removal She was referred to endo surgery for FNA and discussion of thyroidectomy Check thyroid labs now Also referral provided to [employer] for fibroids All questions answered. No barriers for understanding. Advised (more content not included)... [facility] Evaluation note Note Date & Type Note Facility Evaluation note Diagnosis Multinodular goiter Nontoxic multinodular goiter documented in this encounter [facility] Evaluation note Note Date & Type Note Facility Evaluation note Diagnosis Acute right-sided low back pain with right-sided sciatica Pelvic pain in female Unspecified symptom associated with female genital organs documented in this encounter [facility] Summary Purpose Family History No Family History Records FoundNo Family History Records FoundNo Family History Records Found Advance Directives No Advanced Directives Records FoundNo Advanced Directives Records FoundNo Advanced Directives Records Found Additional Source Comments INFORMATION SOURCE (unrecogn ized section and content) DATE CREATED AUTHOR 06/11/2021 [facility] dical Specialist DATE CREATED AUTHOR AUTHOR'S ORGANIZ ATION 06/15/2022 [facility] DATE CREATED AUTHOR AUTHOR'S ORGANIZ ATION 10/09/2023 [facility] dical Specialists EPIC Source Comments (unrecognize d section and content) In the event this informatio n is protected by the Federal Confidentiality of Alcohol and Drug Abuse Patient Records regulations: The Federal rules restrict any use of the information to criminally investigate or prosecute any alcohol or drug abuse patient.[facility] the event this information is protected by the Federal Confidentiality of Alcohol and Drug Abuse Patient Records regulations: The Federal rules restrict any use of the information to criminally investigate or prosecute any alcohol or drug abuse patient.[facility] the event this information is protected by the Federal Confidentiality of Alcohol and Drug Abuse Patient Records regulations: The Federal rules restrict any use of the information to criminally investigate or prosecute any alcohol or drug abuse patient.[facility] the event this information is protected by the Federal Confidentiality of Alcohol and Drug Abuse Patient Records regulations: The Federal rules restrict any use of the information to criminally investigate or prosecute any alcohol or drug abuse patient.[facility] Reason for Visit (unrecogniz ed section and content) Reason Comments Forms Reason Comments Letter Reason Comments Consult Face Sheet Reason Comments Thyroid Problem Specialty Diagnoses / Procedures Referred By Contac t Referred To Contact Diagnoses Multinodular goiter Procedures CONSULT TO ENDOCRINE SURGERY OFFICE/OUTPATIENT [facility] 60-74 MINUTES Vannesa Tejeda MD [address] [facility] [address] [place] [address] Referral ID Status Reason Start Date Expiration Date V isits Requested Visits Authorized [id number] Closed PCP Requested Referral 05/21/2022 05/21/2023 1 1 Reason Comments Med Refill Care Teams (unrecognized sec tion and content) Violin Mechanic Relationship Specialty Start Date End Date Justine Montanez MD [address] [place] [address] PCP - General Family Medicine 11/27/21 Sabrina Estrada [address] [facility] [address] [place] [address] Obstetrics 11/27/21 Violin Mechanic Relationship Specialty Start Date End Date Justine Montanez MD [address] [place], [place] [id number] PCP - General Family Medicine 11/27/21 Sabrina Estrada [address] [facility] [address] [place] [address] Obstetrics 11/27/21 Violin Mechanic Relationship Specialty Start Date End Date Arlyn Phillips NP [address] [place] [id number] PCP - [facility] 04/08/21 Justine Montanez MD [address] [place], [place] [id number] PCP - General Family Medicine 10/20/22 FOR RECORDS PERTAINING TO PATIENTS WHO ARE OR HAVE BEEN ENROLLED IN A CHEMICAL DEPENDENCY/SUBSTANCEABUSE PROGRAM, SOME INFORMATION MAY BE OMITTED. This clinical summary was aggregated from multiple sources. Caution should be exercised in using it in the provision of clinical care. This summary normalizes information from multiple sources, and as a consequence, information in this document may materially change the coding, format and clinical context of patient data. In addition, data may be omitted in some cases. CLINICAL DECISIONS SHOULD BE BASED ON THE PRIMARY CLINICAL RECORDS. [facility]. provides no warranty or guarantee of the accuracy or completeness of information in this document.
[2023-11-06 06:46] LABS: Basophils Absolute Auto 0.1 10^3/uL (0.0-0.1); Eosinophils Absolute Auto 0.1 10^3/uL (0.0-0.7); Eosinophils Percent Auto 2.2 % (0.9-7.0); Hematocrit 26.5 % (36.0-48.0); Lymphocytes Absolute Auto 2.7 10^3/uL (1.2-3.8); Lymphocytes Percent Auto 44.8 % (20.5-60.0); Mean Corpuscular HGB Conc 30.2 g/dL (29.9-35.2); Mean Corpuscular Hemoglobin 22.8 pg (26.7-34.0); Mean Corpuscular Volume 75.5 fL (81.0-99.0); Mean Platelet Volume 9.5 fL (9.5-13.5); Monocytes Absolute Auto 0.7 10^3/uL (0.3-0.8); Monocytes Percent Auto 10.8 % (1.7-12.0); Neutrophils Absolute Auto 2.5 10^3/uL (1.4-6.5); Neutrophils Percent Auto 41.2 % (43.0-75.0); Platelet Count 398 10^3/uL (150-450); Red Blood Count 3.51 10^6/uL (4.20-5.40); Red Cell Distribution Width 24.6 % (11.0-15.0)
[2023-11-06 07:01] LABS: HCG Quantitative <1 mIU/mL
[2023-11-06] MEDS: LACTATED RINGER'S SOLUTION 1,000 ML 50 ML IV (07:23)
--- NOTE | 2023-11-06 09:21 | PC.NURSE ---
Dr. Carvalho aware of HGB and HCT.
--- NOTE | 2023-11-06 10:13 | PM.ONB ---
Brief Operative Note Date of procedure: 11/06/23 Pre-op diagnosis general: aub, pelvic pain, dysmenorrhea, dysparuenia Post-op diagnosis: same as pre-op Procedure: NAME OF PROCEDURE: [d&c hysterscopy with myosure, diagnostic laparoscopy ] fingings-enlarged adenomyotic appearing uterus, multiple large uterine fibroids, thickend endometrial lining NAME OF PROCEDURE: [ D&c hysteroscopy with myosure] PROCEDURE: The patient was taken back to the Operating Room where she was prepped and draped in normal sterile fashion after being placed under general anesthesia without difficulty. She was also placed in the dorsal lithotomy position. A weighted speculum was placed in the patient?s vagina. The anterior lip of the cervix was identified and grasped with a single tooth tenaculum. The patient?s uterus was then sounded roughly to [? 10] cm. The patient was then gently dilated using Hegar dilators. The hysteroscope was passed through the patient?s cervix into the uterus. Both ostia were identified. fluffy appearing endometrium. No gross evidence of malignancy, no gross evidence of polyps or fibroids. The myosure apparatus was placed through the scope, The myosure was engaged and endometrial curretting were removed , The hysteroscope was then removed from the uterus. The endometrial curettings were sent out to pathology. The single tooth tenaculum was then removed from the patient's anterior lip of the cervix where excellent hemostasis was noted. All instruments were removed from the patient?s vagina. A sponge stick was placed into the patient's vagina. Attention was turned to the patient's abdomen, where a small umbilical incision was made. The fascia was tented using Génesis clamps and the fascia was entered sharply. Confirmation of intraabdominal placement of the 10 mm port was confirmed under direct visualization using a laparoscope. The patient's abdomen was then insufflated using CO2 gas with approximately 4 liters. A second port was placed left laterally, this was done under direct visualization with a 5 mm port. Survey of the patient's abdomen demonstrated normal liver and gallbladder. Survey of the patient's pelvic anatomy demonstrated normal appearing rt and lt ovary and tubes as well as enlarged adenomyotic appearing uterus with multiple large uterine fibroids. No endometrial implants could be noted, no evidence of any pelvic disease was seen, normal appearing pelvic cavity. All instruments were removed from the patient's abdomen. The patient's abdomen was deinsufflated of CO2 gas. The patient tolerated the procedure well. Sponge stick was removed from the patient's vagina. The patient's infraumbilical fascia was closed using #0 Vicryl on a GI needle. The patient's skin was closed laterally and infraumbilically using 4-0 Vicryl. The patient tolerated the procedure well. Sponge, lap and needle counts were correct x 2. The patient was taken to Recovery Room in stable condition. Anesthesia: ABBY Surgeon: Tomi Carvalho Steam Service Inspector: Viviane Grace Estimated blood loss (mL): 10 Pathology: other (endometrial currettings) Condition: stable Disposition: PACU Urinary Catheter Management Urinary Catheter Management Urethral: Cath placed during this visit: no
[2023-11-06] MEDS: LACTATED RINGER'S SOLUTION 1,000 ML 150 ML IV (10:47)
--- NOTE | 2023-11-06 11:03 | PC.NURSE ---
Scant bloody drainage noted on peripad
--- NOTE | 2023-11-06 11:05 | PC.NURSE ---
Scant bloody drainage on peripad
--- NOTE | 2023-11-06 12:38 | PC.NURSE ---
1235: pt ambulates to bathroom with minimal assistance,pt voids without difficulty.
== END 2023-11-06 12:52 | disposition home or self-care (01) ==
PROVIDERS: PCP Family Medicine; Visit Provider Obstetrics & Gynecology
PROC: (CPT 840; principal; 2023-11-06 08:10)
DX: R10.2 Pelvic and perineal pain (principal); D25.9 Leiomyoma of uterus, unspecified; N93.9 Abnormal uterine and vaginal bleeding, unspecified; N94.10 Unspecified dyspareunia; N94.6 Dysmenorrhea, unspecified; R93.89 Abnormal findings on diagnostic imaging of other specified body structures; Z87.891 Personal history of nicotine dependence; K21.9 Gastro-esophageal reflux disease without esophagitis
CPT/HCPCS: 49320; 58558; 36415; 84702; 85025; 88305; J1094; J2704